=== PATIENT | male | born 1965 | race Caucasian/White ===

== ENCOUNTER 2020-11-07 09:20 | Emergency (ER) | payer OTHER ==
[2020-11-07 09:30] VITALS: RESP 18
--- NOTE | 2020-11-07 10:09 | XR ---
EXAMINATION TYPE: XR ankle complete LT DATE OF EXAM: 11/07/2020 COMPARISON: NONE HISTORY: Pain FINDINGS: Three views of the ankle demonstrate the ankle mortise to be intact and symmetric. There is a chronic appearing deformity of the anterior margin the tibia on the lateral view and distal fibula. There is a tiny bony density seen adjacent to the medial malleolus with soft tissue edema suspect acute avuls ion fracture. Calcaneal spur noted. Tiny bony densities inferior to the lateral malleolus appear to b e corticated and likely chronic. IMPRESSION: 1. The findings suggestive acute avulsion fracture of the medial talar eminence or medial malleolus.
--- NOTE | 2020-11-07 10:15 | ED ---
Lower Extremity Injury HPI - General Chief Complaint: Extremity Injury, Lower Stated Complaint: foot injury Time Seen by Provider: 11/07/20 09:31 Source: patient, RN notes reviewed Mode of arrival: wheelchair Limitations: no limitations - History of Present Illness Initial Comments: 55-year-old male presents emergency department chief complaint left foot pain. Patient states he had injury at work 9 days ago. Patient states that he was seen at [facility] and transferred to [place]. Patient is advised that he may need surgery and was advised to follow-up in [place] but states that he cannot getting transportation down. Patient attempted to follow up locally but states he cannot get appointment. - Related Data Home Medications Medication Instructions Recorded Confirmed lisinopriL [Zestril] 10 mg PO DAILY 10/20/15 10/20/15 Previous Rx's Medication Instructions Recorded Sulfamethox-Tmp 800-160Mg [Bactrim 2 each PO Q12HR #40 tab 10/20/15 DS 800-160 mg] lisinopriL [Zestril] 10 mg PO DAILY #30 tab 10/20/15 Cephalexin [Keflex] 500 mg PO Q6HR #28 cap 11/07/20 Allergies Allergy/AdvReac Type Severity Reaction Status Date / Time No Known Allergies Allergy Verified 10/20/15 10:35 Review of Systems ROS Statement: Those systems with pertinent positive or pertinent negative responses have been documented in the HPI. ROS Other: All systems not noted in ROS Statement are negative. Past Medical History Past Medical History: No Reported History History of Any Multi-Drug Resistant Organisms: None Reported Past Surgical History: No Surgical Hx Reported Past Psychological History: No Psychological Hx Reported Smoking Status: Current every day smoker Past Alcohol Use History: Daily, Heavy Past Drug Use History: None Reported General Exam Limitations: no limitations General appearance: alert, in no apparent distress Head exam: Present: atraumatic, normocephalic, normal inspection Neck exam: Present: normal inspection, full ROM. Absent: tenderness, meningismus, lymphadenopathy Respiratory exam: Present: normal lung sounds bilaterally. Absent: respiratory distress, wheezes, rales, rhonchi, stridor Cardiovascular Exam: Present: regular rate, normal rhythm, normal heart sounds. Absent: systolic murmur, diastolic murmur, rubs, gallop, clicks Extremities exam: Present: other (Left foot and ankle there is noted ecchymosis, tenderness of the foot, there is abrasion over the malleoli region and drainage, no Tenderness but ecchymosis noted) Course Vital Signs 11/07/20 09:25 Temperature 98.0 F Pulse Rate 95 Respiratory 18 Rate Blood Pressure 123/89 O2 Sat by Pulse 98 Oximetry Procedures - Orthopedic Splinting/Casting Injury #1 Side: left Lower Extremity Injury Location: short leg, foot Lower Extremity Immobilizer: posterior splint Other Orthopedic Equipment: crutches Medical Decision Making - Medical Decision Making 55-year-old male presented for foot pain. Patient does have evidence of cuboid fracture. Patient is abrasion on the side of his ankle which is healing there is minimal redness patient placed on antibiotics. This is not associated with the fracture. Patient's case discussed with orthopedics for follow-up in office. Disposition Clinical Impression: Left cuboid fracture Disposition: HOME SELF-CARE Condition: Stable Instructions (If sedation given, give patient instructions): Foot Fracture in Adults (ED) Additional Instructions: Please return to the Emergency Department if symptoms worsen or any other concerns. Prescriptions: Cephalexin [Keflex] 500 mg PO Q6HR #28 cap Is patient prescribed a controlled substance at d/c from ED?: No Referrals: Rafy Smallwood MD [Primary Care Provider] - 1-2 days Zenon Siddiqui DPM [Doctor of Osteopathic Medicine] - 1-2 days Jose Pena DO [Doctor of Osteopathic Medicine] - 1-2 days Time of Disposition: 11:06
--- NOTE | 2020-11-07 10:29 | XR ---
EXAMINATION TYPE: XR foot complete LT, 3 views DATE OF EXAM: 11/07/2020 Comparison: None Clinical History: 55-year-old male pain, fracture Findings: Degenerative spurring at the tibiotalar joint on the lateral view. There is linear lucency along the lateral aspect of the cuboid and some bony irregularity on the lateral view. No additional acute frac ture, subluxation, dislocation is seen. There appears to be an old healed fracture deformity of the d istal fibula. Tiny posterior heel spur. Impression: 1. Suspect underlying cuboid bone fracture. 2. The appearance of an old healed fracture deformity at the distal fibula.
[2020-11-07] MEDS ORDERED: HYDROmorphone 1 MG/ML 1 ML SYRINGE IM STA (11:05)
[2020-11-07 12:15] VITALS: BP 114/88; PULSE 87; TEMP 97.8
== END 2020-11-07 12:14 | disposition home or self-care (01) ==
LOC: EC 09:20
DX: S92.212A Displaced fracture of cuboid bone of left foot, initial encounter for closed fracture (principal); F17.200 Nicotine dependence, unspecified, uncomplicated; Z79.899 Other long term (current) drug therapy; X58.XXXA Exposure to other specified factors, initial encounter; Y99.0 Civilian activity done for income or pay
CPT/HCPCS: 73610; 73630; 29515; 96372; 99283; J1170

== ENCOUNTER 2021-02-28 01:18 | Emergency (ER) | payer OTHER ==
--- NOTE | 2021-02-28 02:27 | XR ---
EXAMINATION TYPE: XR chest 2V DATE OF EXAM: 02/28/2021 COMPARISON: 10/20/2015 HISTORY: Chest pain TECHNIQUE: 2 views FINDINGS: Heart and mediastinum are normal. Lungs are clear of infiltrate. There is no pleural effusi on. There are no hilar masses. Bony thorax is intact. IMPRESSION: No active cardiopulmonary disease. Normal heart. No change.
[2021-02-28 02:35] LABS: Basophils # (A) 0.1 k/uL (0-0.2); Basophils % (A) 1 %; Eosinophils # (A) 0.1 k/uL (0-0.7); Eosinophils % (A) 2 %; HCT 39.3 % (39.0-53.0); HGB 13.5 gm/dL (13.0-17.5); Lymphocytes # (A) 1.5 k/uL (1.0-4.8); Lymphocytes % (A) 21 %; MCH 31.9 pg (25.0-35.0); MCHC 34.3 g/dL (31.0-37.0); MCV 93.2 fL (80.0-100.0); Mean Platelet Volume 7.5; Monocytes # (A) 0.7 k/uL (0-1.0); Monocytes % (A) 10 %; Neutrophils # (A) 4.5 k/uL (1.3-7.7); Neutrophils % (A) 62 %; Platelet Count 169 k/uL (150-450); RBC 4.22 m/uL (4.30-5.90); RDW 13.6 % (11.5-15.5); WBC 7.2 k/uL (3.8-10.6)
[2021-02-28 02:44] LABS: INR 1.1 (<1.2); Partial Thromboplastin Time 27.9 sec (22.0-30.0); Prothrombin Time 11.9 sec (9.0-12.0)
[2021-02-28 02:57] LABS: ALT 27 U/L (4-49); AST 99 U/L (17-59); African American GFR (CKD) >90 (>60 ml/min/1.73 sqM); Albumin 4.1 g/dL (3.5-5.0); Alkaline Phosphatase 88 U/L (38-126); Anion Gap 15 mmol/L; Blood Urea Nitrogen 7 mg/dL (9-20); Calcium 8.6 mg/dL (8.4-10.2); Carbon Dioxide 17 mmol/L (22-30); Chloride 97 mmol/L (98-107); Glucose 87 mg/dL (74-99); Magnesium 1.8 mg/dL (1.6-2.3); Non-African American GFR(CKD) >90 (>60 ml/min/1.73 sqM); Potassium 4.2 mmol/L (3.5-5.1); Sodium 129 mmol/L (137-145); Total Bilirubin 0.7 mg/dL (0.2-1.3); Total Protein 8.2 g/dL (6.3-8.2)
[2021-02-28] MEDS ORDERED: HYDROcodone/APAP 5-325MG 1 EACH TAB PO STA (03:50)
[2021-02-28] MEDS ORDERED: lisinopriL 10 MG TAB PO STA (03:50)
--- NOTE | 2021-02-28 04:44 | ED ---
General Adult HPI - General Chief complaint: Chest Pain Stated complaint: Hypertension Time Seen by Provider: 02/28/21 01:37 Source: patient, EMS Mode of arrival: EMS Limitations: no limitations - History of Present Illness Initial comments: This patient is 55-year-old man who presents to be evaluated for chest, back, and body aches. He is also having some cough and shortness of breath. Of the symptoms had come on over the course the evening and into tonight. The patient notes that he had run out of medications. Onset/Timin -: days(s) Location: chest, back Quality: dull Consistency: constant Improves with: none Worsens with: none Associated Symptoms: cough, shortness of breath Treatments Prior to Arrival: none - Related Data Home Medications Medication Instructions Recorded Confirmed lisinopriL [Zestril] 10 mg PO DAILY 10/20/15 10/20/15 Previous Rx's Medication Instructions Recorded Sulfamethox-Tmp 800-160Mg [Bactrim 2 each PO Q12HR #40 tab 10/20/15 DS 800-160 mg] lisinopriL [Zestril] 10 mg PO DAILY #30 tab 10/20/15 Cephalexin [Keflex] 500 mg PO Q6HR #28 cap 11/07/20 HYDROcodone/APAP 10-325MG [[place] 1 tab PO Q6HR PRN 3 Days #12 tab 11/07/20 10-325] HYDROcodone/APAP 7.5-325MG [[place] 1 tab PO Q6HR PRN 3 Days #12 tab 02/28/21 7.5-325] lisinopriL 10 mg PO DAILY #30 tablet 02/28/21 Allergies Allergy/AdvReac Type Severity Reaction Status Date / Time No Known Allergies Allergy Verified 10/20/15 10:35 Review of Systems ROS Statement: Those systems with pertinent positive or pertinent negative responses have been documented in the HPI. ROS Other: All systems not noted in ROS Statement are negative. Constitutional: Denies: fever, chills, weakness Respiratory: Reports: cough, dyspnea. Denies: wheezes Cardiovascular: Reports: chest pain. Denies: palpitations, orthopnea, edema, syncope Gastrointestinal: Denies: abdominal pain, nausea, vomiting Genitourinary: Denies: dysuria, hematuria Musculoskeletal: Reports: back pain Skin: Denies: rash Neurological: Denies: headache, weakness, numbness Past Medical History Past Medical History: No Reported History History of Any Multi-Drug Resistant Organisms: None Reported Past Surgical History: No Surgical Hx Reported Past Psychological History: No Psychological Hx Reported Smoking Status: Current every day smoker Past Alcohol Use History: Daily, Heavy Past Drug Use History: None Reported General Exam Limitations: no limitations General appearance: alert, in no apparent distress Head exam: Present: atraumatic, normocephalic Eye exam: Present: normal appearance. Absent: scleral icterus, conjunctival injection ENT exam: Present: normal oropharynx, mucous membranes dry Neck exam: Present: normal inspection, full ROM. Absent: tenderness Respiratory exam: Present: normal lung sounds bilaterally. Absent: respiratory distress, wheezes, rales, rhonchi, stridor Cardiovascular Exam: Present: regular rate, normal rhythm, normal heart sounds. Absent: systolic murmur, diastolic murmur, rubs, gallop GI/Abdominal exam: Present: soft. Absent: distended, tenderness, guarding, rebound, rigid, mass Extremities exam: Present: normal inspection, normal capillary refill. Absent: pedal edema, calf tenderness Back exam: Present: normal inspection. Absent: CVA tenderness (R), CVA tenderness (L) Neurological exam: Present: alert Skin exam: Present: warm, dry, intact, normal color. Absent: rash Course Vital Signs 02/28/21 02/28/21 02/28/21 01:28 04:37 05:33 Temperature 97.6 F 97.8 F Pulse Rate 98 114 H 89 Respiratory 18 18 17 Rate Blood Pressure 161/98 159/103 120/60 O2 Sat by Pulse 98 96 99 Oximetry EKG Findings - EKG Results: EKG: interpreted by ERMD, sinus rhythm (97 bpm), normal axis, normal QRS, normal ST/T Medical Decision Making - Medical Decision Making Patient's 55-year-old man with trunk pain who has had relief of symptoms with IV fluids. Labs are suggestive of a degree of dehydration. In addition the patient is out of his antihypertensive and his pain medication that he normally takes. Would like to go home at this point. Will provide refills for his prescriptions and have the patient follow-up. Did discuss the return parameters the appropriate further care and follow-up. - Lab Data Result diagrams: 02/28/21 02:20 02/28/21 02:20 Lab Results 02/28/21 02/28/21 02/28/21 Range/Units 02:20 02:20 02:20 WBC 7.2 (3.8-10.6) k/uL RBC 4.22 L (4.30-5.90) m/uL Hgb 13.5 (13.0-17.5) gm/dL Hct 39.3 (39.0-53.0) % MCV 93.2 (80.0-100.0) fL MCH 31.9 (25.0-35.0) pg MCHC 34.3 (31.0-37.0) g/dL RDW 13.6 (11.5-15.5) % Plt Count 169 (150-450) k/uL MPV 7.5 Neutrophils % 62 % Lymphocytes % 21 % Monocytes % 10 % Eosinophils % 2 % Basophils % 1 % Neutrophils # 4.5 (1.3-7.7) k/uL Lymphocytes # 1.5 (1.0-4.8) k/uL Monocytes # 0.7 (0-1.0) k/uL Eosinophils # 0.1 (0-0.7) k/uL Basophils # 0.1 (0-0.2) k/uL PT 11.9 (9.0-12.0) sec INR 1.1 (<1.2) APTT 27.9 (22.0-30.0) sec Sodium 129 L (137-145) mmol/L Potassium 4.2 (3.5-5.1) mmol/L Chloride 97 L (98-107) mmol/L Carbon Dioxide 17 L (22-30) mmol/L Anion Gap 15 mmol/L BUN 7 L (9-20) mg/dL Creatinine 0.57 L (0.66-1.25) mg/dL Est GFR (CKD-EPI)AfAm >90 (>60 ml/min/1.73 sqM) Est GFR (CKD-EPI)NonAf >90 (>60 ml/min/1.73 sqM) Glucose 87 (74-99) mg/dL Calcium 8.6 (8.4-10.2) mg/dL Magnesium 1.8 (1.6-2.3) mg/dL Total Bilirubin 0.7 (0.2-1.3) mg/dL AST 99 H (17-59) U/L ALT 27 (4-49) U/L Alkaline Phosphatase 88 (38-126) U/L Troponin I (0.000-0.034) ng/mL Total Protein 8.2 (6.3-8.2) g/dL Albumin 4.1 (3.5-5.0) g/dL 02/28/21 Range/Units 02:20 WBC (3.8-10.6) k/uL RBC (4.30-5.90) m/uL Hgb (13.0-17.5) gm/dL Hct (39.0-53.0) % MCV (80.0-100.0) fL MCH (25.0-35.0) pg MCHC (31.0-37.0) g/dL RDW (11.5-15.5) % Plt Count (150-450) k/uL MPV Neutrophils % % Lymphocytes % % Monocytes % % Eosinophils % % Basophils % % Neutrophils # (1.3-7.7) k/uL Lymphocytes # (1.0-4.8) k/uL Monocytes # (0-1.0) k/uL Eosinophils # (0-0.7) k/uL Basophils # (0-0.2) k/uL PT (9.0-12.0) sec INR (<1.2) APTT (22.0-30.0) sec Sodium (137-145) mmol/L Potassium (3.5-5.1) mmol/L Chloride (98-107) mmol/L Carbon Dioxide (22-30) mmol/L Anion Gap mmol/L BUN (9-20) mg/dL Creatinine (0.66-1.25) mg/dL Est GFR (CKD-EPI)AfAm (>60 ml/min/1.73 sqM) Est GFR (CKD-EPI)NonAf (>60 ml/min/1.73 sqM) Glucose (74-99) mg/dL Calcium (8.4-10.2) mg/dL Magnesium (1.6-2.3) mg/dL Total Bilirubin (0.2-1.3) mg/dL AST (17-59) U/L ALT (4-49) U/L Alkaline Phosphatase (38-126) U/L Troponin I 0.017 (0.000-0.034) ng/mL Total Protein (6.3-8.2) g/dL Albumin (3.5-5.0) g/dL Disposition Clinical Impression: Palpitations Disposition: HOME SELF-CARE Condition: Fair Instructions (If sedation given, give patient instructions): Heart Palpitations (ED) Prescriptions: lisinopriL 10 mg PO DAILY #30 tablet HYDROcodone/APAP 7.5-325MG [[place] 7.5-325] 1 tab PO Q6HR PRN 3 Days #12 tab PRN Reason: Pain Is patient prescribed a controlled substance at d/c from ED?: No Referrals: Rafy Smallwood MD [Primary Care Provider] - 1-2 days
[2021-02-28 05:35] VITALS: BP 120/60; PULSE 89; RESP 17; TEMP 97.8
== END 2021-02-28 05:38 | disposition home or self-care (01) ==
LOC: EC 01:18
DX: R00.2 Palpitations (principal); F17.200 Nicotine dependence, unspecified, uncomplicated; Z79.899 Other long term (current) drug therapy
CPT/HCPCS: 36415; 71046; 80053; 83735; 84484; 85025; 85610; 85730; 93005; 99285

== ENCOUNTER 2021-10-28 17:35 | Emergency (ER) | payer OTHER ==
[2021-10-28 17:49] VITALS: BP 170/90; PULSE 113; RESP 18; TEMP 98.8
--- NOTE | 2021-10-28 19:01 | XR ---
EXAMINATION TYPE: XR chest 2V DATE OF EXAM: 10/28/2021 6:54 PM COMPARISON: Chest radiographs from 02/28/2021 TECHNIQUE: XR chest 2V Frontal and lateral views of the chest. CLINICAL INDICATION:Male, 56 years old with history of pain; FINDINGS: Lungs/Pleura: There is no evidence of pleural effusion, focal consolidation, or pneumothorax. Pulmonary vascularity: Unremarkable. Heart/mediastinum: Cardiomediastinal silhouette is unremarkable. Musculoskeletal: No acute osseous pathology. IMPRESSION: No acute cardiopulmonary disease/process. No significant change from prior examination.
--- NOTE | 2021-10-28 19:04 | XR ---
EXAMINATION TYPE: XR elbow complete LT DATE OF EXAM: 10/28/2021 6:54 PM INDICATION: Patient age:Male; 56 years old; Reason for study: pain; COMPARISON: None TECHNIQUE: The left elbow was examined in AP, lateral, and oblique projections. FINDINGS: No evidence of any acute osseous pathology, joint dislocation, or soft tissue swelling is n oted. No evidence of joint effusion is present. IMPRESSION: No evidence of acute fracture.
== END 2021-10-28 20:40 | disposition left against medical advice (07) ==
LOC: EC 17:35
DX: Z53.9 Procedure and treatment not carried out, unspecified reason (principal)
CPT/HCPCS: 71046; 99499

== ENCOUNTER 2022-02-19 23:45 | Emergency (ER) | payer OTHER ==
[2022-02-19 23:50] VITALS: BP 123/71; PULSE 114; RESP 20
--- NOTE | 2022-02-20 00:07 | ED ---
ENT HPI - General Chief complaint: ENT Stated complaint: Facial Swelling Time Seen by Provider: 02/19/22 23:56 Source: patient, RN notes reviewed, old records reviewed Mode of arrival: ambulatory Limitations: no limitations - History of Present Illness Initial comments: This is a 56-year-old male to the emergency department for evaluation patient presents today for sore throat significantly swollen lips and face. No prior history of similar symptoms. No prior similar symptoms at home patient did recently start taking lisinopril MD complaint: sore throat, ear pain, difficulty swallowing -: hour(s) Location: tongue, throat, upper lip, lower lip Severity: moderate Severity scale (1-10): 7 Quality: aching Consistency: constant Improves with: none Worsens with: none Context-Epistaxis: other (Lisinopril use, allergen exposure) Context- Ear: other (0) Associated Symptoms: other (0) - Related Data Home Medications Medication Instructions Recorded Confirmed lisinopriL [Zestril] 10 mg PO DAILY 10/20/15 10/20/15 Previous Rx's Medication Instructions Recorded Sulfamethox-Tmp 800-160Mg [Bactrim 2 each PO Q12HR #40 tab 10/20/15 DS 800-160 mg] lisinopriL [Zestril] 10 mg PO DAILY #30 tab 10/20/15 Cephalexin [Keflex] 500 mg PO Q6HR #28 cap 11/07/20 HYDROcodone/APAP 10-325MG [[place] 1 tab PO Q6HR PRN 3 Days #12 tab 11/07/20 10-325] HYDROcodone/APAP 7.5-325MG [[place] 1 tab PO Q6HR PRN 3 Days #12 tab 02/28/21 7.5-325] lisinopriL [Prinivil] 10 mg PO DAILY #30 tablet 02/28/21 Losartan/Hydrochlorothiazide 1 tab PO DAILY #30 tab 02/20/22 [Losartan-Hctz 50-12.5 mg Tab] hydrOXYzine HCL [Atarax] 25 mg PO TID PRN #15 tab 02/20/22 predniSONE 50 mg PO DAILY #5 tab 02/20/22 Allergies Allergy/AdvReac Type Severity Reaction Status Date / Time No Known Allergies Allergy Verified 02/19/22 23:50 Review of Systems ROS Statement: Those systems with pertinent positive or pertinent negative responses have been documented in the HPI. ROS Other: All systems not noted in ROS Statement are negative. Past Medical History Past Medical History: Hypertension History of Any Multi-Drug Resistant Organisms: None Reported Past Surgical History: No Surgical Hx Reported Past Psychological History: No Psychological Hx Reported Smoking Status: Former smoker Past Alcohol Use History: Daily, Heavy Past Drug Use History: None Reported General Exam - General Exam Comments Initial Comments: facial and lip swelling no tongue edema Limitations: no limitations General appearance: alert, in no apparent distress Head exam: Present: atraumatic, normocephalic, normal inspection Eye exam: Present: normal appearance, PERRL, EOMI. Absent: scleral icterus, conjunctival injection, periorbital swelling ENT exam: Present: normal exam, mucous membranes moist Neck exam: Present: normal inspection. Absent: tenderness, meningismus, lymphadenopathy Respiratory exam: Present: normal lung sounds bilaterally. Absent: respiratory distress, wheezes, rales, rhonchi, stridor Cardiovascular Exam: Present: regular rate, normal rhythm, normal heart sounds. Absent: systolic murmur, diastolic murmur, rubs, gallop, clicks GI/Abdominal exam: Present: soft, normal bowel sounds. Absent: distended, tenderness, guarding, rebound, rigid Extremities exam: Present: normal inspection, full ROM, normal capillary refill. Absent: tenderness, pedal edema, joint swelling, calf tenderness Back exam: Present: normal inspection Neurological exam: Present: alert, oriented X3, CN II-XII intact Psychiatric exam: Present: normal affect, normal mood Skin exam: Present: warm, dry, intact, normal color. Absent: rash Course Vital Signs 02/19/22 23:47 Pulse Rate 114 H Respiratory 20 Rate Blood Pressure 123/71 O2 Sat by Pulse 95 Oximetry - Reevaluation(s) Reevaluation #1: 02/20/22 Medical record is reviewed Swelling remained significantly improved Patient informed of results and questions are answered Medical Decision Making - Medical Decision Making 56 male to the emergency department for evaluation of significant facial swelling oral swelling patient is informed of results here in the ER given treatment with antihistamines, no difficulty breathing no stridor patient can be discharged home Disposition Clinical Impression: Allergic reaction, Angioedema Disposition: HOME SELF-CARE Condition: Good Instructions (If sedation given, give patient instructions): Angioedema (ED) Prescriptions: hydrOXYzine HCL [Atarax] 25 mg PO TID PRN #15 tab PRN Reason: Itching Losartan/Hydrochlorothiazide [Losartan-Hctz 50-12.5 mg Tab] 1 tab PO DAILY #30 tab predniSONE 50 mg PO DAILY #5 tab Is patient prescribed a controlled substance at d/c from ED?: No Referrals: None,Stated [Primary Care Provider] - 1-2 days Time of Disposition: 01:30
[2022-02-20] MEDS ORDERED: diphenhydrAMINE 50 MG/ML 1 ML VIAL IVP STA (00:26)
[2022-02-20] MEDS ORDERED: DEXAMETHASONE SOD PHOSPHATE 10 MG/ML 1 ML VIAL IVP STA (00:26)
[2022-02-20] MEDS ORDERED: hydrOXYzine HCL 25 MG TAB PO STA (00:26)
[2022-02-20] MEDS ORDERED: FAMOTIDINE 20 MG/2 ML VIAL IV STA (00:26)
[2022-02-20] MEDS ORDERED: SODIUM CHLORIDE 0.9% 500 ML 500 ML IV STA (00:26)
== END 2022-02-20 01:38 | disposition home or self-care (01) ==
LOC: EC 23:45
DX: T78.40XA Allergy, unspecified, initial encounter (principal); T78.3XXA Angioneurotic edema, initial encounter; I10 Essential (primary) hypertension; Z87.891 Personal history of nicotine dependence; Z79.899 Other long term (current) drug therapy; Z79.811 Long term (current) use of aromatase inhibitors
CPT/HCPCS: 99283 ×2; 96374 ×2; 96375 ×3; J1200; J1100; 96361